=== PATIENT | male | born 1975 | race Caucasian/White ===

== ENCOUNTER 2016-11-27 11:49 | Inpatient (IN) | payer OTHER ==
[2016-11-27 13:02] LABS: BASOPHIL 3.5 % (0-2.0); EOSINOPHIL 3.4 % (0-4.5); MCH 31.2 pg (25.7-33.7); MCHC 34.3 g/dl (32.0-35.9); MEAN PLT VOLUME 7.2 fl (7.5-11.1); PLATELET COUNT 164 K/MM3 (134-434); RDW 13.2 % (11.9-15.9); WHITE BLOOD COUNT 5.5 K/mm3 (4.0-10.0)
[2016-11-27] MEDS ORDERED: MECLIZINE HCL 25 MG TABLET (FP) ONE (13:10)
[2016-11-27] MEDS ORDERED: MECLIZINE HCL 25 MG TABLET (FP) PO ONE (13:12)
--- NOTE | 2016-11-27 13:12 | PDOC ---
History of Present Illness <Negin Tran - Last Filed: 11/27/16 16:47> - General History Source: Patient Exam Limitations: No Limitations - History of Present Illness Initial Comments: 11/27/16 13:15 The patient is a 41 year old male, with a significant past medical history of TIA(2000), Afib(on aspirin), hypertension, hyperlipidemia, anxiety, and mood disorder, who presents to the emergency department complaining of lightheadedness and numbness to the right arm since approximately 06:30. The patient reports he was on his way to the bathroom this morning at 06:30, when he began to feel dizzy (as if the room were spinning) and lightheadedness. He reports associated numbness to the right arm. Patient states he had to hold on to the wall in order due to a feeling of imbalance. Patient reports going back to sleep and waking up at approximately 08:30, but his symptoms persisted. He states his fiancee noted his right eye was droopy. Patient reports going to the bathroom again to confirm the eye droop. Shortly after he called EMS. Patient reports he went to bed at approximately 11:30 last night, and denies any alcohol or drug use. He admits he has a history of vertigo infrequently, but never with numbness or paresthesias. He reports seasonal allergies. The patient denies any nausea, vomiting, diarrhea, or constipation. He denies any fever, chills, or headache. He denies any chest pain, shortness of breath, diaphoresis , or palpitations. Allergies: None reported. Past Surgical History: None reported. Social History: Non-smoker. Denies alcohol or drug use. PCP: Dr. Gabino Ventura <Yesi Bazan - Last Filed: 11/27/16 17:13> - General Chief Complaint: Lightheaded Stated Complaint: NUMBNESS Past History - Past Medical History HTN: Yes Hypercholesterolemia: Yes Psychiatric Problems: Yes (mood disorder) - Psycho/Social/Smoking Cessation Hx Anxiety: Yes Suicidal Ideation: No Smoking History: Never smoked Have you smoked in the past 12 months: No Information on smoking cessation initiated: No Hx Alcohol Use: No Drug/Substance Use Hx: No Substance Use Type: None <Negin Tran - Last Filed: 11/27/16 16:47> <Yesi Bazan - Last Filed: 11/27/16 17:13> - Past Medical History Allergies/Adverse Reactions: Allergies Allergy/AdvReac Type Severity Reaction Status Date / Time No Known Allergies Allergy Verified 11/27/16 11:56 Home Medications: Ambulatory Orders Aspirin [Aspirin EC] 81 mg PO DAILY 11/27/16 Atorvastatin Ca [Lipitor] 40 mg PO HS 11/27/16 Cholecalciferol (Vitamin D3) [D-2000] 2,000 unit PO BID 11/27/16 Gabapentin 600 mg PO HS 11/27/16 Gabapentin [Neurontin -] 300 mg PO BID 11/27/16 Lisinopril/Hydrochlorothiazide [Lisinopril-Hctz 20-12.5 mg Tab] 1 each PO DAILY 11/27/16 Nortriptyline HCl [Pamelor] 75 mg PO HS 11/27/16 Review of Systems - Review of Systems Able to Perform ROS?: Yes Comments:: 11/27/16 13:17 GENERAL/CONSTITUTIONAL: No fever or chills. No weakness. HEAD, EYES, EARS, NOSE AND THROAT: Yes: +Right eye droop. No change in vision. No ear pain or discharge. No sore throat. CARDIOVASCULAR: No chest pain or shortness of breath. RESPIRATORY: No cough, wheezing, or hemoptysis. GASTROINTESTINAL: No nausea, vomiting, diarrhea or constipation. GENITOURINARY: No dysuria, frequency, or change in urination. MUSCULOSKELETAL: No joint or muscle swelling or pain. No neck or back pain. SKIN: No rash NEUROLOGIC: Yes: +vertigo, +lightheadedness, +dizziness, +numbness to the right arm, +paresthesias to the right arm, +imbalance gait. No headache, or loss of consciousness ENDOCRINE: No increased thirst. No abnormal weight change. HEMATOLOGIC/LYMPHATIC: No anemia, easy bleeding, or history of blood clots. ALLERGIC/IMMUNOLOGIC: No hives or skin allergy. <Yesi Bazan - Last Filed: 11/27/16 17:13> *Physical Exam - Vital Signs Last Vital Signs Temp Pulse Resp BP Pulse Ox 98 F 84 20 151/82 100 11/27/16 11:57 11/27/16 11:57 11/27/16 11:57 11/27/16 11:57 11/27/16 11:57 <Negin Tran - Last Filed: 11/27/16 16:47> - Vital Signs Last Vital Signs Temp Pulse Resp BP Pulse Ox 98 F 84 20 151/82 100 11/27/16 11:57 11/27/16 11:57 11/27/16 11:57 11/27/16 11:57 11/27/16 11:57 - Physical Exam Comments: 11/27/16 13:17 GENERAL: Awake, alert, and fully oriented, in no acute distress HEAD: No signs of trauma EYES: PERRLA, EOMI, sclera anicteric, conjunctiva clear ENT: Auricles normal inspection, hearing grossly normal, nares patent. Moist mucosa NECK: Normal ROM, supple, no lymphadenopathy, JVD, or masses LUNGS: Breath sounds equal, clear to auscultation bilaterally. No wheezes, and no crackles HEART: Regular rate and rhythm, normal S1 and S2, no murmurs, rubs or gallops ABDOMEN: Soft, nontender, normoactive bowel sounds. No guarding, no rebound. No masses EXTREMITIES: Normal range of motion, no edema. No clubbing or cyanosis. No cords, erythema, or tenderness. DP/PT pulses 2+ and symmetric. NEUROLOGICAL: Cranial nerves and visual cohn intact. Finger to nose normal. Strength 5/5. Decreased sensation to light touch on the right upper extremity. Positive Sukhjinder-Hallpike to the left. Positive Romberg's. Unsteady gait. Normal speech. Moves all extremities. SKIN: Warm, Dry, normal turgor, no rashes or lesions noted. <Yesi Bazan - Last Filed: 11/27/16 17:13> NIH Stroke Scale - Last Known Well Date/Time & Onset Date Last Known Well: 11/26/16 Time Last Known Well: 23:30 - Initial Evaluation Level of consciousness: Alert Ask patient the month and their age: Answers both correctly Ask patient to open & close eyes; make fist and let go: Obeys both correctly Best gaze (horizontal eye movement): Normal Visual field testing: No visual field loss Facial paresis (Show teeth/raise eyebrows/close eyes tight): Normal symmetrical movement Motor Function: Left Arm: Normal Motor Function: Right Arm: Normal (extends arm 90 (or 45) degrees for 10 seconds without drift Motor Function: Left Leg: Normal (extends leg 30 degrees for 5 seconds without drift) Motor Function: Right Leg: Normal (extends leg 30 degrees for 5 seconds without drift) Limb Ataxia: No ataxia Sensory(Use pinprick test arms,legs,trunk,face/side to side): Mild to moderate decrease in sensation (right side arm only) Best language (Describe picture, name items, read sentences): No Aphasia Dysarthria (read several words): Normal articulation Extinction and Inattention: No abnormality (positive romberg, unsteady gait) - Total Score NIH Stroke Scale Score: 1 <Negin Tran - Last Filed: 11/27/16 16:47> Heart Score/ECG Review #1 General ECG Interpretation: Sinus Rhythm, Normal Rate (75), Normal Intervals, No acute ischemic changes - ECG Intrepretation Rhythm: Regular Rhythm - Central Central: Normal <Negin Tran - Last Filed: 11/27/16 16:47> Critical Care Time/MDM Note - Medical Decision Making Note: 11/27/16 13:04 41 yo male with h/o palpitations, dysthrymia, afib prior TIA, here wtih co vertigo sxs, and right arm numbness. started this am on awakening. last normal last pm at 11:30pm. has had vertigo in the past, but never with arm numbness. no weakness. no change to vision. no n/v . did feel imbalance with walking, had to hold on to the wall . takes aspirin daily. pcp dr. Ventura on exam awake, alert EOMI, PERRL. facies symmetric . speech clear. lungs clear. heart rrr. abd soft NT ND. ext wWP neuro: 5/5 all four ext. CN intact finger to nose normal. pos romberg, gait unsteady. pos sukhjinder hallpike to left. vf intact. sensation decr to right differential: cerebellar stroke ( pt with risk factors ) positional vertigo, plan ct head, labs ekg meclizine. reassess. 11/27/16 16:10 pt with normal labs. mild improvement with meclizine. pcp Gabino Cuevas. Has seen a forensic locksmith at the [facility] Dr. [place], . states he has been told he has afib in the past. at time of TIA in 2000. was on coumadin for some time, but then told he didn't need it any more. now just taking atorvastatin 40mg, asa 81 daily, and hctz for bp. has had loop monitor placed at [place] 2 weeks ago, by forensic locksmith to diagnose his persistant palpitations. due to pt high risk for CVA, will admit for MRI, reevaluation by cardiology to discuss need for anticoagulation due to possible intermittent afib. pt currently in sinus. 11/27/16 16:21 pt not tpa candidate as outside window symptoms since day prior. 11/27/16 16:48 d/w w dr Valles for admission, request dr. burgess for cardiology, d/w covering DR. Beckford who will see pt in ed. <Negin Tran - Last Filed: 11/27/16 16:47> - Medical Decision Making Note: 11/27/16 13:18 Documentation prepared by Yesi Bazan, acting as medical staff physician for Negin Tran MD. First call placed to Dr. Valles at 16:13. Awaiting call back. Case discussed with Dr. Valles at 16:15. Will admit to Tele. First call placed to Dr. Burgess at 16:32. Awaiting call back. Case discussed with Dr. Beckford at 16:38. EXAM: Head CT INTERPRETED BY: Dr. Enriquez REVIEWED BY: Dr. Tran IMPRESSION: No CT evidence of acute intracranial pathology. <Yesi Bazan - Last Filed: 11/27/16 17:13> Discharge Disposition - Discharge Dispostion Admit: Yes <Negin Tran - Last Filed: 11/27/16 16:47> <Yesi Bazan - Last Filed: 11/27/16 17:13> - Diagnosis Vertigo, Palpitations - Referrals Referrals: Dave Ricardo MD [Primary Care Provider] -
[2016-11-27] MEDS ORDERED: SODIUM CHLORIDE 0.9% 1000 ML INFUS.BAG IV ONE (13:13)
[2016-11-27 13:15] LABS: ALBUMIN 4.1 g/dl (3.4-5.0); ANION GAP 5 (8-16); BILIRUBIN,TOTAL 0.6 mg/dL (0.2-1.0); CO2 29 mmol/L (21-32); COCKROFT - GAULT 108.88; CREATININE 1.1 mg/dL (0.7-1.3); GLUCOSE,RANDOM 86 mg/dL (74-106); SGOT/AST 31 U/L (15-37); SGPT/ALT 58 U/L (12-78); TOT PROT 7.2 g/dl (6.4-8.2)
[2016-11-27 13:18] LABS: ALK PHOS 114 U/L (45-117); TROPONIN I < 0.02 ng/ml (0.00-0.05)
--- NOTE | 2016-11-27 15:18 | EKG ---
Test Reason : Blood Pressure : / mmHG Vent. Rate : 075 BPM Atrial Rate : 075 BPM P-R Int : 162 ms QRS Dur : 076 ms QT Int : 390 ms P-R-T Axes : 040 003 014 degrees QTc Int : 435 ms NORMAL SINUS RHYTHM NORMAL ECG NO PREVIOUS ECGS AVAILABLE Confirmed by ÁNGEL MARTINEZ MD ([id number]) on 11/27/2016 3:17:40 PM Referred By: Confirmed By:ÁNGEL MARTINEZ MD
[2016-11-27] MEDS ORDERED: ATORVASTATIN CA 20 MG TABLET (FP) PO SCH (22:00)
[2016-11-27] MEDS: GABAPENTIN 300 MG CAPSULE (FP) PO SCH (22:30)
[2016-11-28] VITALS: BMI 30.1
[2016-11-28 07:30] LABS: MCH 31.6 pg (25.7-33.7); MCHC 35.2 g/dl (32.0-35.9); MEAN CELL VOLUME 89.8 fl (80-96); MEAN PLT VOLUME 7.1 fl (7.5-11.1); PLATELET COUNT 161 K/MM3 (134-434); RDW 13.5 % (11.9-15.9)
[2016-11-28 08:29] LABS: ALBUMIN 3.7 g/dl (3.4-5.0); ALK PHOS 106 U/L (45-117); ANION GAP 7 (8-16); BILIRUBIN,TOTAL 0.7 mg/dL (0.2-1.0); CALCIUM 8.8 mg/dL (8.5-10.1); CHOLESTEROL 162 mg/dL (50-200); CO2 28 mmol/L (21-32); COCKROFT - GAULT 100.93; CREATININE 1.2 mg/dL (0.7-1.3); GLUCOSE,RANDOM 82 mg/dL (74-106); LDL CHOLESTEROL (ONLY SJRH) 101 mg/dL (5-100); SGOT/AST 29 U/L (15-37); SGPT/ALT 54 U/L (12-78); TOT PROT 6.5 g/dl (6.4-8.2)
[2016-11-28] MEDS ORDERED: PT OWN MED DRAWER 7, Y5N ONE (09:38)
[2016-11-28] MEDS: GABAPENTIN 300 MG CAPSULE (FP) PO SCH (09:50)
[2016-11-28] MEDS ORDERED: PNEUMOC 13-VAL CONJ-DIP CRM/PF 0.5 ML DISP.SYRIN IM ONE (10:00)
[2016-11-28] MEDS ORDERED: LISINOPRIL 20 MG TABLET (FP) PO SCH (10:00)
[2016-11-28] MEDS ORDERED: ASPIRIN 81 MG CHEWABLE TABLETS PO SCH (10:00)
[2016-11-28] MEDS ORDERED: NORTRIPTYLINE HCL 25 MG CAPSULE PO SCH ×2 (10:00→21:00)
--- NOTE | 2016-11-28 11:03 | HP ---
Admitting History and Physical - Primary Care Physician PCP: Yue Willis - Admission Chief Complaint: ACUTE CVA/TIA/WEAKNESS History of Present Illness: The patient is a 41 year old male, with a significant past medical history of TIA(2000), Afib(on aspirin), hypertension, hyperlipidemia, anxiety, and mood disorder, who presents to the emergency department complaining of lightheadedness and numbness to the right arm since approximately 06:30. The patient reports he was on his way to the bathroom this morning at 06:30, when he began to feel dizzy (as if the room were spinning) and lightheadedness. He reports associated numbness to the right arm. Patient states he had to hold on to the wall in order due to a feeling of imbalance. Patient reports going back to sleep and waking up at approximately 08:30, but his symptoms persisted. He states his fiancee noted his right eye was droopy. Patient reports going to the bathroom again to confirm the eye droop. Shortly after he called EMS. Patient reports he went to bed at approximately 11:30 last night, and denies any alcohol or drug use. He admits he has a history of vertigo infrequently, but never with numbness or paresthesias. He reports seasonal allergies. The patient denies any nausea, vomiting, diarrhea, or constipation. He denies any fever, chills, or headache. He denies any chest pain, shortness of breath, diaphoresis , or palpitations. 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: Peripheral Neuropathy, TIA Cardiovascular: Yes: HTN Musculoskeletal: Yes: Chronic low back pain, Osteoarthritis - Smoking History Smoking history: Never smoked Have you smoked in the past 12 months: No - Alcohol/Substance Use Hx Alcohol Use: No Home Medications - Allergies Allergies/Adverse Reactions: Allergies Allergy/AdvReac Type Severity Reaction Status Date / Time No Known Allergies Allergy Verified 11/27/16 11:56 - Home Medications Home Medications: Ambulatory Orders Aspirin [Aspirin EC] 81 mg PO DAILY 11/27/16 Atorvastatin Ca [Lipitor] 40 mg PO HS 11/27/16 Cholecalciferol (Vitamin D3) [D-2000] 2,000 unit PO BID 11/27/16 Gabapentin 600 mg PO HS 11/27/16 Gabapentin [Neurontin -] 300 mg PO BID 11/27/16 Lisinopril/Hydrochlorothiazide [Lisinopril-Hctz 20-12.5 mg Tab] 1 each PO DAILY 11/27/16 Nortriptyline HCl [Pamelor] 75 mg PO HS 11/27/16 Review of Systems - Review of Systems Constitutional: reports: Weakness Eyes: reports: No Symptoms HENT: reports: No Symptoms Neck: reports: No Symptoms Cardiovascular: reports: No Symptoms Respiratory: reports: No Symptoms Gastrointestinal: reports: No Symptoms Genitourinary: reports: No Symptoms Breasts: reports: No Symptoms Reported Musculoskeletal: reports: Crepitus, Decreased ROM, Extremity Pain, Joint Pain, Joint Swelling, Muscle Weakness Integumentary: reports: No Symptoms Neurological: reports: Incoordination, Numbness, Parasthesia, Pre-Existing Deficit, Unsteady Gait, Weakness Endocrine: reports: No Symptoms Hematology/Lymphatic: reports: No Symptoms Psychiatric: reports: Anxiety, Depression, Other Physical Examination Vital Signs: Vital Signs Temperature 98.3 F 11/28/16 10:02 Pulse Rate 86 11/28/16 10:02 Respiratory Rate 16 11/28/16 10:02 Blood Pressure 129/73 11/28/16 10:02 O2 Sat by Pulse Oximetry (%) 95 11/27/16 22:00 Findings/Remarks: IN BED C/O OF PAIN/NUMBNESS TINGLING Constitutional: Yes: Mild Distress Eyes: Yes: WNL HENT: Yes: WNL Neck: Yes: WNL Cardiovascular: Yes: WNL Respiratory: Yes: WNL Gastrointestinal: Yes: WNL Renal/: Yes: WNL Musculoskeletal: Yes: Joint Stiffness, Muscle Pain, Muscle Weakness Extremities: Yes: WNL Edema: No Peripheral Pulses WNL: Yes Integumentary: Yes: WNL Wound/Incision: Yes: Clean/Dry Neurological: Yes: Confusion, Loss of Sensation, Numbness, Paresthesia, Pre- Existing Deficit, Unsteady Gait, Weakness ...Motor Strength: LLE, RLE Psychiatric: Yes: Other Labs: CBC, BMP 11/28/16 07:15 11/28/16 07:15 Imaging - Results Cat Scan: Report Reviewed MRI: Pending Problem List - Problems (1) Palpitations Code(s): R00.2 - PALPITATIONS (2) Vertigo Code(s): R42 - DIZZINESS AND GIDDINESS (3) TIA (transient ischemic attack) Code(s): G45.9 - TRANSIENT CEREBRAL ISCHEMIC ATTACK, UNSPECIFIED Qualifiers: Transient cerebral ischemia type: multiple and bilateral precerebral artery syndromes Qualified Code(s): G45.2 - Multiple and bilateral precerebral artery syndromes (4) Radiculopathy affecting upper extremity Code(s): M54.10 - RADICULOPATHY, SITE UNSPECIFIED Assessment/Plan MRI BRAIN PENDING HIS CARDIAC DEVISE STATUS I ASKED FOR PATIENT TO PRESENT HIS DEVISE CARD SO WE CAN DETERMINE MRI SAFETY PRIOR TO STARTING NEUROLOGY WORKUP. TIA LIKELY, LDL GOAL<70 BP CONTROL CHECK ECHO 2-D CARDIOLOGY EVAL TELEMETRY PT EVAL NEURO EVAL
[2016-11-28] MEDS ORDERED: GABAPENTIN 300 MG CAPSULE (FP) PO SCH (14:00)
--- NOTE | 2016-11-28 14:30 | CON.CARD ---
Consult Consult Specialty:: cardiology Referred by:: Alba Reason for Consultation:: TIA - History of Present Illness Chief Complaint: facial droopn, right arm numbness History of Present Illness: The patient is a 41-year-old man with history of hypertension, hyperlipidemia, anxiety, mood disorder, prior atrial fibrillation, on aspirin, history of TIA in 2000, now admitted with lightheadedness right facial droop and numbness, and right upper extremity weakness. The patient stated that he woke up this morning and tried to walk to his bathroom. He suddenly noticed a facial droop and lightheadedness. He stated that the symptoms resembles the one that he had in 2001, at the time of his TIA. The patient denied palpitations, shortness of breath, chest pains. He denied any other associated symptoms. The patient stated that he has a loop recorder that was implanted at the [facility] approximately 3 weeks ago. 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 Cardio/Vascular: Yes: HTN Musculoskeletal: Yes: Chronic low back pain, Osteoarthritis - Alcohol/Substance Use Hx Alcohol Use: No - Smoking History Smoking history: Never smoked Have you smoked in the past 12 months: No Home Medications - Allergies Allergies/Adverse Reactions: Allergies Allergy/AdvReac Type Severity Reaction Status Date / Time No Known Allergies Allergy Verified 11/27/16 11:56 - Home Medications Home Medications: Ambulatory Orders Aspirin [Aspirin EC] 81 mg PO DAILY 11/27/16 Atorvastatin Ca [Lipitor] 40 mg PO HS 11/27/16 Cholecalciferol (Vitamin D3) [D-2000] 2,000 unit PO BID 11/27/16 Gabapentin 600 mg PO HS 11/27/16 Gabapentin [Neurontin -] 300 mg PO BID 11/27/16 Lisinopril/Hydrochlorothiazide [Lisinopril-Hctz 20-12.5 mg Tab] 1 each PO DAILY 11/27/16 Nortriptyline HCl [Pamelor] 75 mg PO HS 11/27/16 Family Disease History - Family Disease History Family History: Unremarkable Review of Systems - Review of Systems Constitutional: reports: No Symptoms Eyes: reports: No Symptoms HENT: reports: No Symptoms Neck: reports: No Symptoms Cardiovascular: reports: No Symptoms Respiratory: reports: No Symptoms Gastrointestinal: reports: No Symptoms Genitourinary: reports: No Symptoms Breasts: reports: No Symptoms Reported Musculoskeletal: reports: No Symptoms Integumentary: reports: No Symptoms Neurological: reports: Numbness Hematology/Lymphatic: reports: No Symptoms Psychiatric: reports: No Symptoms Vital Signs: Vital Signs Temperature 98.3 F 11/28/16 13:55 Pulse Rate 70 11/28/16 13:55 Respiratory Rate 20 11/28/16 13:55 Blood Pressure 133/75 11/28/16 13:55 O2 Sat by Pulse Oximetry (%) 95 11/28/16 10:00 Constitutional: Yes: Well Nourished, No Distress Eyes: Yes: WNL HENT: Yes: WNL Neck: Yes: WNL Respiratory: Yes: WNL Gastrointestinal: Yes: WNL Renal/: Yes: WNL Cardiovascular: Yes: WNL JVD: No Carotid Bruit: No Heart Sounds: Yes: S1, S2 Musculoskeletal: Yes: WNL Extremities: Yes: WNL Edema: No Peripheral Pulses WNL: Yes Integumentary: Yes: WNL ...Motor Strength: RUE Psychiatric: Yes: WNL - Other Data Labs, Other Data: CBC, BMP 11/28/16 07:15 11/28/16 07:15 normal sinus rhythm normal ECG Imaging - Results EKG: Image Reviewed Assessment/Plan 41-year-old man with a history of hypertension, hyperlipidemia, anxiety, history of atrial fibrillation in the remote past, on aspirin, history of TIA, now presenting with a right facial droop and numbness in the right upper extremity weakness. Symptoms improved but did not resolve completely. The patient reports no chest pains, shortness of breath, palpitations. He is in sinus rhythm. No events noted on telemetry. The ECG was normal. The patient was in sinus rhythm. Continue telemetry. Continue home medications. MRI of the brain. Echocardiogram. I will determine the need for further testing once the above workup is available. The patient is stable and comfortable.
[2016-11-28 17:18] VITALS: BP 128/53; PULSE 76; TEMP 98.6
--- NOTE | 2016-11-28 19:40 | CONSULT ---
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 HTN, Chol on lisinopril, HCTZ, atorvastatin. Chronic migraine headaches on Nortriptyline 75 qHS. This has reduced severe GARCIA' s with nausea, photophobia and phonophobia to 2/mo but Pt still has mild daily pressing headaches for which he takes naprosyn. Given topiramate in the past but didn't tolerate. Chronic neck and low back pain with numbness, tingling and pains in both legs, especially at night, for most of his life. Chevy notes he is always kicking her and moving. Sleeps with pillows between his legs. Chronic insomnia. s/p B/L partial knee replacements without change in his nocturnal leg pains. On Gabapentin 600 mg QHS. S/P "TIA" in 2000. Had palpitations, tachycardia and transient Right sided numbness at the time. Was anticoagulated x "few years." On ASA after that. Now with implanted loop potline monitor from the [facility] due to persistent palpitations. To be read on Tuesday. Multiple, stereotyped episodes of vertigo over many years. Some associated with headaches. Often with unsteady gait. Given meclizine in the past but didn't tolerate. Now admitted after awakening on Tuesday AM with spinning vertigo, unsteady gait ("holding on to the robertson") and transient R arm weakness. His fiancee noted "drooping Eyelid" after Patient questioned her about facial asymmetry. CT of head (reviewed): Normal study. MARVIN: No bruits. No head trauma. Cor Rapid (90's) and occ irreg. s/p b/l knee surgery. NEURO: MS/speech: Normal CN II-XII: Normal without Nystagmus Motor: No drift or tremor. Normal strength, tone, bulk. Normal reflexes. Toes downgoing Coord: Normal Sensory: Normal. Romberg neg. Gait: Normal including tandem. IMP: Normal neurological exam. Migraine Headaches. Strongly suspect that stereotyped vertigo is due to vertebrobasilar migraine syndrome and not TIA or labyrinthitis. Restless Limbs Syndrome (RLS). SUGGEST: Add Propranolol ER 60 mg for migraine prophylaxis and tachycardia. F/U at the [facility] for reading of the loop monitor. If paroxysmal AFib would certainly anticoagulate. Neuro f/u for migraine and RLS. Would begin pramipexole .125 mg after dinner and gradually increase to .25 mg after breakfast and .50 mg after dinner Thank you very much, Diogenes Cooper MD
--- NOTE | 2016-11-29 08:13 | DS ---
Physical Examination Vital Signs: Vital Signs Temperature 98.6 F 11/28/16 17:17 Pulse Rate 76 11/28/16 17:17 Respiratory Rate 18 11/28/16 17:17 Blood Pressure 128/53 11/28/16 17:17 O2 Sat by Pulse Oximetry (%) 95 11/28/16 10:00 Labs: CBC, BMP 11/28/16 07:15 11/28/16 07:15 Discharge Summary Reason For Visit: STROKE, VERTIGO - Instructions Diet, Activity, Other Instructions: follow up with PMD Referrals: Eulalio Burgess MD [Staff Physician] - Diogenes Cooper MD [Staff Physician] - Eugene Beckford MD [Staff Physician] - Yue Willis MD [Staff Physician] - Dave Ricardo MD [Non Staff, Medical] - - Home Medications Comprehensive Discharge Medication List: Ambulatory Orders Aspirin [Aspirin EC] 81 mg PO DAILY 11/27/16 Atorvastatin Ca [Lipitor] 40 mg PO HS 11/27/16 Cholecalciferol (Vitamin D3) [D-2000] 2,000 unit PO BID 11/27/16 Gabapentin 600 mg PO HS 11/27/16 Gabapentin [Neurontin -] 300 mg PO BID 11/27/16 Lisinopril/Hydrochlorothiazide [Lisinopril-Hctz 20-12.5 mg Tab] 1 each PO DAILY 11/27/16 Nortriptyline HCl [Pamelor] 75 mg PO HS 11/27/16
== END 2016-11-28 19:54 | disposition left against medical advice (07) | DRG 48 ==
LOC: JER 11:49 → JERBED 16:19 → UNDOADMIN 16:41 → JERBED 16:41 → J4S 21:59
PROVIDERS: ADMIT Family Medicine; ATTEND Family Medicine
DX: M54.10 Radiculopathy, site unspecified (principal); G43.109 Migraine with aura, not intractable, without status migrainosus; R42 Dizziness and giddiness; I48.91 Unspecified atrial fibrillation; I10 Essential (primary) hypertension; E78.5 Hyperlipidemia, unspecified; F41.9 Anxiety disorder, unspecified; F39 Unspecified mood [affective] disorder; G25.81 Restless legs syndrome; R00.2 Palpitations; M54.5 Low back pain; M19.90 Unspecified osteoarthritis, unspecified site; R00.0 Tachycardia, unspecified; F51.04 Psychophysiologic insomnia; R26.81 Unsteadiness on feet; Z86.73 Personal history of transient ischemic attack (TIA), and cerebral infarction without residual deficits
CPT/HCPCS: 36415; 70450-TC; 71020-TC; 80053; 80061; 82550; 83036; 83721; 84484; 85025; 85027; 90670; 93005; 93010; 99285-25